=== PATIENT | female | born 1935 | race Caucasian/White ===

== ENCOUNTER → 2016-11-18 | Outpatient (REF) | payer MEDICARE, BC | LOC: M LAB REF 14:35 | PROVIDERS: ATTEND Internal Medicine | DX: R56.9 Unspecified convulsions (principal) ==

== ENCOUNTER → 2017-08-11 | Outpatient (REF) | payer MEDICARE, BC ==
[2017-08-11 17:24] LABS: VALPROIC ACID (DEPAKOTE) 68.1 UG/ML (50.0-100.0)
== END ==
LOC: M LAB REF 16:31
DX: G40.909 Epilepsy, unspecified, not intractable, without status epilepticus (principal)
CPT/HCPCS: 80164

== ENCOUNTER → 2017-11-29 | Outpatient (REF) | payer MEDICARE, BC ==
[2017-11-29 14:53] LABS: C REACTIVE PROTEIN QUANTITATIV < 0.30 MG/DL (0.00-0.30)
== END ==
LOC: M LAB REF 12:29
DX: L03.115 Cellulitis of right lower limb (principal)
CPT/HCPCS: 86140

== ENCOUNTER → 2018-07-26 | Outpatient (REF) | payer MEDICARE, BC | LOC: M LAB REF 12:35 | PROVIDERS: ATTEND Internal Medicine | DX: R30.0 Dysuria (principal) ==

== ENCOUNTER 2018-10-20 08:15 | Outpatient (RCR) | payer MEDICARE, BC | END 2018-10-28 | LOC: M PT 08:15 | PROVIDERS: ATTEND Physician Assistant Medical | DX: Z51.89 Encounter for other specified aftercare (principal); M54.2 Cervicalgia; M54.81 Occipital neuralgia ==

== ENCOUNTER → 2020-06-17 | Outpatient (REF) | payer MEDICARE, BC | LOC: M LAB REF 17:11 | PROVIDERS: ATTEND Internal Medicine | DX: G40.909 Epilepsy, unspecified, not intractable, without status epilepticus (principal) ==

== ENCOUNTER 2023-04-16 18:16 | Emergency (ER) | payer MEDICARE, BC ==
[~2023-04-16] VITALS: Ht 157.5 cm; Wt 55.8 kg
[2023-04-16] MEDS: NS 1,000 ML IV ONE (19:21)
[2023-04-16 19:27] LABS: VENOUS BASE EXCESS 1.2 (-2.0-2.0); VENOUS HCO3 27.7 MMOL/L (23.0-27.0); VENOUS O2 SATURATION 60.9 % (60.0-80.0); VENOUS PARTIAL PRESSURE CO2 51.6 mmHg (38.0-50.0); VENOUS PARTIAL PRESSURE O2 32.1 mmHg (30.0-50.0); VENOUS PH 7.348 UNITS (7.330-7.430); VENOUS STANDARD HCO3 24.6 MMOL/L; VENOUS TOTAL CO2 29.3 MMOL/L (24.0-28.0)
[2023-04-16 19:32] LABS: BASO % 0.2 % (0.0-1.0); EOS % 0.5 % (0.0-3.0); HEMATOCRIT 37.8 % (36.0-47.0); HEMOGLOBIN 13.1 g/dl (12.0-15.5); LYMPH # 1.7 10^3/uL (1.5-5.0); LYMPH % 20.4 % (24.0-44.0); MEAN CORPUSCULAR HGB CONC 34.7 g/dl (32.0-36.5); MEAN CORPUSCULAR VOLUME 89.4 fl (80.0-96.0); MONO # 0.6 10^3/uL (0.0-0.8); MONO % 7.9 % (2.0-8.0); NEUTROPHILS # 5.7 10^3/uL (1.5-8.5); NEUTROPHILS % 70.8 % (36.0-66.0); PLATELET COUNT, AUTOMATED 187 10^3/uL (150-450); RED BLOOD COUNT 4.23 10^6/uL (4.00-5.40); WHITE BLOOD COUNT 8.1 10^3/uL (4.0-10.0)
[2023-04-16 20:02] LABS: ETHYL ALCOHOL (ETHANOL) 0.005 % (0.000-0.010); VALPROIC ACID (DEPAKOTE) 68.9 UG/ML (50.0-100.0)
[2023-04-16 20:03] LABS: CK-MB VALUE MASS < 1.0 NG/ML (<3.6)
[2023-04-16 20:04] LABS: BLOOD UREA NITROGEN 19 MG/DL (9-23); CALCIUM LEVEL 8.1 MG/DL (8.3-10.6); CARBON DIOXIDE LEVEL 29 MMOL/L (20-31); CHLORIDE LEVEL 102 MMOL/L (98-107); CPK CREATINE PHOSPHOKINASE 91 U/L (34-145); CREATININE FOR GFR 0.61 MG/DL (0.55-1.30); GLOMERULAR FILTRATION RATE > 60.0 (>32); GLUCOSE, FASTING 137 MG/DL (74-106); MAGNESIUM LEVEL 1.9 MG/DL (1.8-2.4); MB/CK RELATIVE INDEX 1.09 (< OR =4); POTASSIUM SERUM 3.7 MMOL/L (3.5-5.1); SODIUM LEVEL 135 MMOL/L (136-145)
[2023-04-16 20:06] LABS: THYROID STIMULATING HORMONE 7.215 uIU/ML (0.55-4.78)
[2023-04-16 20:07] LABS: FREE T4 1.37 NG/DL (0.89-1.76)
[2023-04-16 20:11] LABS: RSV AMPLIFICATION NEGATIVE (NEGATIVE)
[2023-04-16 20:18] LABS: INR 0.99; PROTHROMBIN TIME 12.8 SECONDS (12.5-14.5)
[2023-04-16 20:50] LABS: PARTIAL THROMBOPLASTIN TIME 20.5 SECONDS (24.8-34.2)
[2023-04-16 21:09] LABS: CK-MB VALUE MASS 1.2 NG/ML (<3.6)
[2023-04-16] MEDS ORDERED: ATEN25TA PO (21:09)
[2023-04-16] MEDS ORDERED: AMLO1TAB24 PO (21:09)
[2023-04-16] MEDS ORDERED: LEVO75TA4 PO (21:09)
[2023-04-16] MEDS ORDERED: DIVA500T9 PO (21:09)
[2023-04-16] MEDS ORDERED: CLOP75TA2 PO (21:09)
[2023-04-16] MEDS ORDERED: SIMV10TA21 PO (21:09)
[2023-04-16] MEDS ORDERED: HOME MED LIST COMPLETE! XX SCH (21:10)
[2023-04-16 21:11] LABS: MB/CK RELATIVE INDEX 1.33 (< OR =4)
[2023-04-16] MEDS: DIVALPROEX 250MG *ER* TAB PO ONE (21:17)
[2023-04-16] MEDS ORDERED: DEPA250T2 PO (21:45)
[2023-04-16 22:00] VITALS: BP 149/74
[2023-04-16 22:16] VITALS: TEMP 98.1; O2SAT 98
== END 2023-04-16 22:30 | disposition left against medical advice (07) ==
LOC: M ED 18:16
DX: R55 Syncope and collapse (principal); I44.4 Left anterior fascicular block; I10 Essential (primary) hypertension; Z88.0 Allergy status to penicillin; Z79.02 Long term (current) use of antithrombotics/antiplatelets; Z79.899 Other long term (current) drug therapy; Z53.9 Procedure and treatment not carried out, unspecified reason

== ENCOUNTER → 2023-04-20 | Outpatient (REF) | payer MEDICARE, BC ==
[~2023-04-20] MED LIST: AMLO1TAB24 PO; ATEN25TA PO; CLOP75TA2 PO; DEPA250T2 PO; DIVA500T9 PO; LEVO75TA4 PO; SIMV10TA21 PO
== END ==
LOC: M LAB REF 16:12
PROVIDERS: ATTEND Internal Medicine
DX: R31.9 Hematuria, unspecified (principal)

== ENCOUNTER → 2023-04-27 | Outpatient (REF) | payer MEDICARE, BC | LOC: M LAB REF 16:10 | PROVIDERS: ATTEND Internal Medicine | DX: R31.9 Hematuria, unspecified (principal) ==

== ENCOUNTER → 2023-05-04 | Outpatient (REF) | payer MEDICARE, BC | LOC: M LAB REF 16:22 | PROVIDERS: ATTEND Internal Medicine | DX: R31.9 Hematuria, unspecified (principal) ==

== ENCOUNTER → 2023-06-10 | Outpatient (CLI) | payer MEDICARE, BC ==
[~2023-06-10] MED LIST changes: +GASTROGRAFIN SOLUTION 30ML ONE; +ISOVUE-370 76% 100ML VIAL ONE
== END ==
LOC: M PLAIMG 08:27
PROVIDERS: ATTEND Internal Medicine
DX: K57.30 Diverticulosis of large intestine without perforation or abscess without bleeding (principal); R10.31 Right lower quadrant pain
CPT/HCPCS: 74177; Q9963; Q9967

== ENCOUNTER → 2023-10-25 | Outpatient (REF) | payer MEDICARE, BC ==
[~2023-10-25] MED LIST changes: -GASTROGRAFIN SOLUTION 30ML ONE; -ISOVUE-370 76% 100ML VIAL ONE
== END ==
LOC: M LAB REF 11:58
PROVIDERS: ATTEND Internal Medicine
DX: D64.9 Anemia, unspecified (principal)

== ENCOUNTER → 2023-11-02 | Outpatient (REF) | payer MEDICARE, BC ==
[2023-11-12 12:32] LABS: HPV VAGINAL Not Detected (NOT DETECT)
== END ==
LOC: M SFHCWAGY 15:12
PROVIDERS: ATTEND Nurse Practitioner Women's Health
DX: Z12.72 Encounter for screening for malignant neoplasm of vagina (principal)

== ENCOUNTER → 2023-11-02 | Outpatient (CLI) | payer MEDICARE, BC | LOC: M WHC 11:18 | PROVIDERS: ATTEND Nurse Practitioner Women's Health | DX: Z12.31 Encounter for screening mammogram for malignant neoplasm of breast (principal) ==

== ENCOUNTER → 2024-12-31 | Outpatient (REF) | payer MEDICARE, BC ==
[~2024-12-31] MED LIST changes: +DEPA250T PO; -DEPA250T2 PO
== END ==
LOC: M LAB REF 12:52
DX: N39.0 Urinary tract infection, site not specified (principal)

== ENCOUNTER → 2025-01-15 | Outpatient (REF) | payer MEDICARE, BC | LOC: M LAB REF 17:07 | DX: N39.0 Urinary tract infection, site not specified (principal); R10.A1 Flank pain, right side ==